=== PATIENT | male | born 1990 | race African-American/Black ===

== ENCOUNTER 2020-12-19 20:54 | Emergency (ER) | payer SELFPAY ==
[2020-12-19] MEDS ORDERED: Azithromycin 250 MG TAB ONE (21:32)
[2020-12-19] MEDS ORDERED: cefTRIAXone\\ROCEPHIN 250 MG VIAL ONE (21:32)
[2020-12-19] MEDS ORDERED: Lidocaine 1% PF 5 ML VIAL ONE (21:32)
[2020-12-19 22:05] LABS: Bilirubin Negative (Negative); Blood, Urine Trace (Negative); Clarity Turbid (Clear); Glucose, Urine (Dipstick) Normal (Negative); Ketone, Urine 10 mg/dL (Negative); Leukocyte 500 Leu/uL (Negative); Mucous/LPF Rare LPF (<2+); Nitrite Negative (Negative); Protein, Urine (Dipstick) 30 mg/dL (Neg-Trace); Specific Gravity, Urine 1.034 (1.002-1.036); Squamous Epithelial None Seen HPF (0-3); Urobilinogen Normal mg/dL (Less than 2); WBC/HPF Greater than 50 HPF (0-3)
[2020-12-19 22:13] LABS: Bacteria/HPF 1+ HPF (None Seen)
== END 2020-12-19 20:59 | disposition home or self-care (01) ==
LOC: ERS 20:54
DX: A64 Unspecified sexually transmitted disease (principal); F17.210 Nicotine dependence, cigarettes, uncomplicated
CPT/HCPCS: 81003; 81015; 96372; 99283; J0696

== ENCOUNTER 2021-08-23 19:19 | Emergency (ER) | payer SELFPAY ==
[2021-08-23] MEDS ORDERED: Ibuprofen 800 MG TAB ONE (22:21)
== END 2021-08-23 23:43 | disposition home or self-care (01) ==
LOC: ERS 19:19
DX: R07.2 Precordial pain (principal); F17.210 Nicotine dependence, cigarettes, uncomplicated
CPT/HCPCS: 71045; 93005

== ENCOUNTER 2022-12-15 12:04 | Emergency (ER) | payer OTHER, SELFPAY ==
[2022-12-15] MEDS ORDERED: Ketorolac Tromethamine 30 MG/ML VIAL ONE (12:47)
== END 2022-12-15 13:27 | disposition home or self-care (01) ==
LOC: ERS 12:04
DX: S60.221A Contusion of right hand, initial encounter (principal); F17.210 Nicotine dependence, cigarettes, uncomplicated; V89.2XXA Person injured in unspecified motor-vehicle accident, traffic, initial encounter
CPT/HCPCS: J1885

== ENCOUNTER 2023-08-07 23:37 | Emergency (ER) | payer SELFPAY ==
[2023-08-08] MEDS ORDERED: Ibuprofen 800 MG TAB ONE (00:48)
== END 2023-08-08 02:28 | disposition home or self-care (01) ==
LOC: ERS 23:37
DX: S93.402A Sprain of unspecified ligament of left ankle, initial encounter (principal); S39.012A Strain of muscle, fascia and tendon of lower back, initial encounter; F17.210 Nicotine dependence, cigarettes, uncomplicated; X50.1XXA Overexertion from prolonged static or awkward postures, initial encounter

== ENCOUNTER 2023-10-20 16:11 | Emergency (ER) | payer OTHER ==
[2023-10-20] MEDS ORDERED: traMADol HCl 50 MG TAB ONE (17:03)
== END 2023-10-20 18:19 | disposition home or self-care (01) ==
LOC: ERS 16:11
DX: M25.512 Pain in left shoulder (principal); G89.29 Other chronic pain; F17.210 Nicotine dependence, cigarettes, uncomplicated
CPT/HCPCS: 71045

== ENCOUNTER 2024-07-07 17:08 | Emergency (ER) | payer OTHER | END 2024-07-07 19:42 | disposition left against medical advice (07) | LOC: ERS 17:08 | DX: Z53.21 Procedure and treatment not carried out due to patient leaving prior to being seen by health care provider (principal) ==